=== PATIENT | female | born 1985 | race Caucasian/White ===

== ENCOUNTER 2020-02-01 10:25 | Emergency (ER) | payer MEDICAID ==
[~2020-02-01] VITALS: Ht 160 cm; Wt 48.8 kg
[2020-02-01] MEDS ORDERED: AMOX-580 PO (11:45)
[2020-02-01] MEDS ORDERED: amox tr/potassium clavulanate 875/125mg TAB PO ONE (11:45)
[2020-02-01] MEDS ORDERED: TETanus/Pertussis (Acell)/Diphther VAC/PF (Tdap-Adult) 0.5ml syringe IMVAC ONE (11:45)
[2020-02-01 12:21] VITALS: BP 141/81
== END 2020-02-01 12:23 | disposition home or self-care (01) ==
LOC: ER 10:25
DX: S61.452A Open bite of left hand, initial encounter (principal); L03.114 Cellulitis of left upper limb; F12.90 Cannabis use, unspecified, uncomplicated; Z79.2 Long term (current) use of antibiotics; W54.0XXA Bitten by dog, initial encounter; Y93.89 Activity, other specified; Y92.89 Other specified places as the place of occurrence of the external cause; Y99.8 Other external cause status
CPT/HCPCS: 90471; 90715; 99283